=== PATIENT | female | born 1965 | race Hispanic/Latino ===

== ENCOUNTER 2021-01-23 12:28 | Outpatient (CLI) | payer OTHER ==
--- NOTE | 2021-01-23 15:22 | XRay Report ---
BILATERAL KNEES 4 VIEWS INDICATION / CLINICAL INFORMATION: BILATERAL KNEE PAIN. COMPARISON: None available. FINDINGS: Advanced tricompartmental degenerative change in both knees. No other significant skeletal abnormalit y Signer Name: Jeffrey Horan MD FACR Signed: 01/23/2021 3:18 PM Workstation Name: [email or web address]
--- NOTE | 2021-01-23 15:22 | XRay Report ---
RIGHT HAND 2 VIEWS INDICATION / CLINICAL INFORMATION: RIGHT HAND PAIN. COMPARISON: None available. FINDINGS: No significant skeletal abnormality Signer Name: Jeffrey Horan MD FACCharito Signed: 01/23/2021 3:17 PM Workstation Name: [email or web address]
--- NOTE | 2021-01-23 15:22 | XRay Report ---
LUMBAR SPINE 3 VIEWS INDICATION / CLINICAL INFORMATION: BACK PAIN. COMPARISON: None available. FINDINGS: Marked narrowing of the L4-5 disc space with small anterior osteophytes. No other significant skeleta l abnormality. Alignment is normal. Numerous gallstones are seen in the right upper quadrant. Signer Name: Jeffrey Horan MD FACCharito Signed: 01/23/2021 3:17 PM Workstation Name: [email or web address]
== END 2021-01-23 12:29 | disposition home or self-care (01) ==
LOC: XRAY 12:28
PROVIDERS: ATTEND Internal Medicine
DX: M17.0 Bilateral primary osteoarthritis of knee (principal); M79.641 Pain in right hand; M48.061 Spinal stenosis, lumbar region without neurogenic claudication
CPT/HCPCS: 72100